=== PATIENT | female | born 1985 | race Two or more races ===

== ENCOUNTER 2023-11-16 02:46 | Emergency (ER) | payer OTHER ==
[~2023-11-16] VITALS: Ht 172.7 cm; Wt 65.9 kg
[2023-11-16 04:56] VITALS: BP 143/76; PULSE 111; RESP 18; TEMP 98.2
[2023-11-16] MEDS ORDERED: BENZLOZ2 MT (05:12)
[2023-11-16] MEDS ORDERED: BENZ200C64 PO (05:12)
[2023-11-16] MEDS ORDERED: CLIN300C70 PO (05:12)
[2023-11-16] MEDS ORDERED: ALBU108A5 IN (05:12)
[2023-11-16] MEDS ORDERED: MUPI2OIN2 EX (05:12)
[2023-11-16] MEDS ORDERED: PRED20TA2 PO (05:12)
[2023-11-16] MEDS ORDERED: cefTRIAXone SOD 1,000 MG VL IM ONE (05:15)
[2023-11-16] MEDS ORDERED: DexAMETHasone SOD PHOS 10MG/1ML VIAL INJ IM ONE (05:15)
[2023-11-16 06:11] VITALS: O2SAT 93
== END 2023-11-16 06:19 | disposition home or self-care (01) ==
LOC: ER 02:46
DX: J03.90 Acute tonsillitis, unspecified (principal); H92.03 Otalgia, bilateral; R05.9 Cough, unspecified; L73.9 Follicular disorder, unspecified
CPT/HCPCS: 96372; 99284; J0696; J1100

== ENCOUNTER 2025-04-26 03:58 | Emergency (ER) | payer SELFPAY ==
[~2025-04-26] VITALS: Ht 172.7 cm; Wt 67.2 kg
[~2025-04-26 03:58] MED LIST: ALBU108A5 IN; BENZ200C64 PO; BENZLOZ2 MT; CLIN1CAP70 PO; MUPI2OIN2 EX; PRED20TA2 PO
[2025-04-26 04:26] VITALS: BP 169/105; PULSE 96; RESP 18; TEMP 97.6; O2SAT 96
[2025-04-26] MEDS ORDERED: PRED20TA2 PO (05:54)
[2025-04-26] MEDS ORDERED: AZIT-43 PO (05:54)
--- NOTE | 2025-04-26 05:54 | ED.PDOC ---
Eye-HPI HPI Comments 39-year-old female presents to ER with complaints of sore throat x3 months. Patient reports that she has been experiencing a sore throat x "3 months" with associated bilateral earache pain and dry cough x three weeks. She rates her current pain a 5/10. Denies use of medications for current symptoms and presents to ER ambulatory on arrival, with steady gait, in no distress. Denies fever, body aches, chills, shortness of breath, hemoptysis, fatigue, n/v, chest pain, weight changes or any further symptoms/complaints Chief Complaint: Sore Throat Time Seen by MD: 04:15 Primary Care Provider: UNKNOWN Reviewed Notes: Nurses Notes, Medications, Allergies Allergies: Coded Allergies: NO KNOWN ALLERGIES (Unverified , 11/16/23) Home Meds Active Scripts Prednisone (Prednisone) 20 Mg Tab, 20 MG PO BID for 5 Days, #10 TAB 0 Refills Prov:HODA CHAN 04/26/25 Azithromycin (Azithromycin) 250 Mg Tab, 250 MG PO DAILY MDD 500 for 5 Days, #6 TAB 0 Refills 2 TABLETS ORALLY ON DAY ONE, THEN 1 TABLET ORALLY DAILY FOR 4 DAYS Prov:HODA CHAN 04/26/25 Benzonatate (Benzonatate) 200 Mg Cap, 1 CAP PO TID, #30 CAP As needed for cough Prov:[employer] 11/16/23 Benzocaine-Menthol (Mouth-Thro (Cepacol Sore Throat) 1 Polina Polina, 1 POLINA MT Q4HPRN PRN, #24 POLINA As needed for sorethroat Prov:[employer]ARA [employer] 11/16/23 Mupirocin (Pseudomonas Fluores (Mupirocin) 2 % Oin, 1 APPLIC EX TID, #15 OIN Apply to the affected area Prov:CHIARA EBCK [employer] 11/16/23 Albuterol Sulfate (Albuterol Sulfate Hfa) 108 Mcg/Act Aer, 2 PUFF IN Q4HPRN PRN, #1 INH As needed for cough nasal congestion shortness of breath or wheeze Prov:CHIARA [employer]K [employer] 11/16/23 Prednisone (Prednisone) 20 Mg Tab, 1 TAB PO DAILY for 5 Days, #5 TAB Start tomorrow with food Prov:CHIARA [employer] 11/16/23 Clindamycin Hcl (Clindamycin Hcl) 300 Mg Cap, 1 CAP PO QID for 10 Days, #40 CAP Prov:CHIARA BECK Q [employer] 11/16/23 Mode of Arrival: Ambulatory Past Medical History Past Medical History (Other): SVT Surgical History: Denies all surgeries CARDROOM HAND History: No Pertinent CARDROOM HAND History Family History Family History: Unknown Social History Smoker: Cigarettes, Less Than 1 Pack/Day Alcohol: Denies ETOH Use Drugs: Denies Drug Use Lives In: Home Constitutional: denies: chills, diaphoresis, fatigue, fever, malaise, sweats, weakness, others EENTM: reports: others (As stated in HPI) Respiratory: reports: others (As stated in HPI) Cardiovascular: denies: chest pain, dizzy spells, diaphoresis, Dyspnea on exertion, edema, irregular heart beat, left arm pain, lightheadedness, palpitations, PND, syncope, others Gastrointestinal: denies: abdomen distended, abdominal pain, blood streaked bowels, constipated, diarrhea, dysphagia, difficulty swallowing, hematemesis, me rancho, nausea, poor appetite, poor fluid intake, rectal bleeding, rectal pain, vomiting, others Genitourinary: denies: abnormal vagina bleeding, burning, dyspareunia, dysuria, flank pain, frequency, hematuria, incontinence, pain, , vagina discharge, urgency, others Neurological: denies: dizziness, fainting, headache, left sided numbness, left sided weakness, numbness, paresthesia, pre-existing deficit, right sided numbness, right sided weakness, seizure, speech problems, tingling, tremors, weakness, others Musculoskeletal: denies: back pain, gout, joint pain, joint swelling, muscle pain, muscle stiffness, neck pain, others Integumetry: denies: bruises, change in color, change in hair/nails, dryness, laceration, lesions, lumps, rash, wounds, others Allergic/Immunocompromised: denies: Difficulty Healing, Frequent Infections, Hives, Itching, others Hematologic/Lymphatic: denies: anemia, blood clots, easy bleeding, easy bruising, swollen glands, others Endocrine: denies: excessive hunger, excessive sweating, excessive thirst, excessive urination, flushing, intolerance to cold, intolerance to heat, unexplained weight gain, unexplained weight loss, others Psychiatric: denies: anxiety, bipolar disorder, depression, hopeless, panic disorder, schizophrenia, sleepless, suicidal, others Physical Exam General Appearance: No Apparent Distress HEENT: PERRL/EOMI, Pharynx Normal (Mild pharyngeal erythema noted. No exudates appreciated. Uvula-normal), TMs Normal Neck: Full Range of Motion, Non-Tender, Normal Respiratory: Chest Non-Tender, Lungs Clear, No Accessory Muscle Use, No Respiratory Distress, Normal Breath Sounds Cardiovascular: No Murmur, No Gallop, Regular Rate/Rhythm Breast Exam: Deferred Gastrointestinal: NOT DONE Genitalia: Deferred Pelvic: Deferred Rectal: Deferred Extremities: Normal capillary refill, Normal range of motion Neurologic: Alert, judicial clerk II-XII nml as Tested, No Motor Deficits, Normal Affect, Normal Mood, No Sensory Deficits Cerebellar Function: Normal Reflexes: Normal Skin: Dry, Normal Color, Warm Peripheral Pulses: 2+ Radial (R), 2+ Radial (L), 2+ Brachial (R), 2+ Brachial (L) Lymphatic: No Adenopathy Was a procedure done? Was a procedure done?: No Sedation Sedation?: No EENT DIFF Eye: N/A Sore Throat: Epiglottitis, Mononeucleosis, Peritonsillar Abscess, URI, Other (mass) X-Ray, Labs, Meds, VS Vital Signs Date Time Temp Pulse Resp B/P (MAP) Pulse Ox O2 Delivery O2 Flow Rate FiO2 04/26/25 04:26 97.6 96 18 169/105 (126) 96 97.6 Smoking cessation discussed and advised Patient tolerating p.o. intake well and in no distress during ER visit/prior to discharge Advised to drink plenty of fluids Advised to follow up with PCP and ENT in 1-2 days Patient verbalized understanding and agreeable with current plan of care Advised to return to ER immediately if symptoms worsen Time of 1ST Reevaluation: 05:24 Reevaluation 1ST: N/A Patient Education/Counseling: Diagnosis, Treatment, Prognosis, Need For Follow Up Family Education/Counseling: No Family Present SEPSIS Sepsis Screen Date sepsis recognized/suspect: Apr 26, 2025 Time Sepsis recognized/suspect: 042 Recent Procedure: No On Antibiotic Therapy: No Respiratory Rate >20: No Heart Rate >90: Yes Temp<36 C (96.8 F) or >38.3 C: No SBP <90 or MAP <65 mmHG: No New Acute Mental Status Change: No Is the patient on CPAP, BIPAP,: No Vital Signs Date Time Temp Pulse Resp B/P (MAP) Pulse Ox O2 Delivery O2 Flow Rate FiO2 04/26/25 04:26 97.6 96 18 169/105 (126) 96 97.6 Departure 1 Departure Time of Disposition: 05:52 Impression: Primary Impression: Acute bronchitis Qualified Codes: J20.9 - Acute bronchitis, unspecified Additional Impression: Laryngitis Disposition: HOME / SELF CARE / HOMELESS Condition: Stable e-Prescriptions Prednisone (Prednisone) 20 Mg Tab 20 MG PO BID for 5 Days, #10 TAB 0 Refills Prov: HODA CHAN 04/26/25 Azithromycin (Azithromycin) 250 Mg Tab 250 MG PO DAILY MDD 500 for 5 Days, #6 TAB 0 Refills 2 TABLETS ORALLY ON DAY ONE, THEN 1 TABLET ORALLY DAILY FOR 4 DAYS Prov: HODA CHAN 04/26/25 Discharged With: Self Critical Care Note Critical Care Time?: No Stability Stability form required: No Heart Score Heart Score: Heart Score Response (Comments) Value History N/A 0 EKG N/A 0 Age N/A 0 Risk Factors N/A 0 Troponin N/A 0 Total 0 HODA CHAN Apr 26, 2025 05:54
== END 2025-04-26 06:07 | disposition home or self-care (01) ==
LOC: ER 03:58
DX: J20.9 Acute bronchitis, unspecified (principal); J04.0 Acute laryngitis; F17.210 Nicotine dependence, cigarettes, uncomplicated